=== PATIENT | male | born 1970 | race Caucasian/White ===

== ENCOUNTER 2020-04-25 01:19 | Inpatient (IN) | payer MEDICAID, OTHER ==
[~2020-04-25] VITALS: Ht 175.3 cm; Wt 88.5 kg
[~2020-04-25 01:19] MED LIST: METH10TA2 PO
[2020-04-25] MEDS ORDERED: MORPHINE SULFATE 4 MG/ML CPJ (NOT FOR IM USE) IV STA (01:55)
[2020-04-25 03:04] LABS: BASOPHILS % 0.8 % (0.0-2.0); EOSINOPHILS % 2.2 % (0.0-5.0); HEMATOCRIT. 44.1 % (42.0-52.0); HEMOGLOBIN. 15.2 g/dL (14.0-18.0); MEAN CORPUSCULAR HEMOGLOBIN 31.7 pg (28.0-32.0); MONOCYTES % 7.5 % (2.0-8.0); NEUTROPHILS % 64.5 % (40.0-76.0); PLATELET 197 x1000/uL (130-400); RED CELL DISTRIBUTION WIDTH 12.9 % (11.6-14.6)
[2020-04-25 03:12] LABS: CHLORIDE 108 mEq/L (98-107)
[2020-04-25] MEDS ORDERED: ACETAMINOPHEN 325MG TABLET PO PRN ×2 (06:00)
[2020-04-25] MEDS ORDERED: ONDANSETRON HCL 4MG/2ML INJ IV PRN (06:00)
[2020-04-25] MEDS ORDERED: IPRATROPIUM/ALBUTEROL 0.5-3(2.5)MG/3ML NEB ORI PRN (06:00)
[2020-04-25] MEDS ORDERED: NITROGLYCERIN 0.4MG TABLET SL SL PRN (06:00)
[2020-04-25] MEDS ORDERED: GUAIFENESIN 200MG/10ML SUGAR FREE UDC PO PRN (06:00)
[2020-04-25] MEDS ORDERED: MAGNESIUM/ALUMINUM HYDROXIDE/SIMETHICONE 30ML UDC PO PRN (06:00)
[2020-04-25] MEDS ORDERED: KETOROLAC 15MG/ML VIAL IV PRN (06:00)
[2020-04-25] MEDS ORDERED: DOCUSATE SODIUM 100MG CAPSULE PO PRN (06:00)
[2020-04-25] MEDS ORDERED: CLONIDINE 0.1MG TABLET PO PRN (06:00)
[2020-04-25] MEDS ORDERED: LORAZEPAM 0.5MG TABLET PO PRN (06:00)
[2020-04-25] MEDS: ASPIRIN 325MG EC TABLET PO SCH (09:08)
[2020-04-25] MEDS: ENOXAPARIN 40MG/0.4ML SYR SUBCUT SCH (09:12)
[2020-04-25] MEDS: FAMOTIDINE 20MG TABLET PO SCH ×2 (09:12→22:29)
[2020-04-25 13:06] LABS: LDL CHOLESTEROL 87 mg/dL (5-100)
[2020-04-25 13:07] LABS: HDL CHOLESTEROL 47 mg/dL (40-59)
[2020-04-25 13:08] LABS: CREATINE KINASE 66 IU/L (39-308)
[2020-04-25 13:10] LABS: CREATINE KINASE MB FRACTION 1.1 ng/mL (0.5-3.6)
[2020-04-25 13:35] VITALS: BP 111/71
[2020-04-25 14:01] VITALS: BP 111/71
[2020-04-25] MEDS ORDERED: GABA-531 PO (14:30)
[2020-04-25] MEDS ORDERED: QUET50TA PO (14:31)
[2020-04-25] MEDS ORDERED: BUPR100T13 PO (14:32)
[2020-04-25] MEDS ORDERED: BUPR200T31 PO (14:33)
[2020-04-25 16:00] VITALS: BP 119/73
[2020-04-25] MEDS ORDERED: ZOLPIDEM TARTRATE 5MG TABLET PO PRN (21:00)
[2020-04-25 21:19] LABS: CREATINE KINASE 51 IU/L (39-308); CREATINE KINASE MB FRACTION < 1.0 ng/mL (0.5-3.6)
[2020-04-26] VITALS: BP 103/60
[2020-04-26 04:00] VITALS: BP 111/66
[2020-04-26] MEDS ORDERED: ASPI-1158 MT (06:28)
[2020-04-26 08:00] VITALS: BP 115/59
[2020-04-26 08:48] LABS: *AMPHETAMINES SCREEN URINE PRESUMTIVE POSITIVE (NEGATIVE); *BARBITURATES SCREEN URINE NEGATIVE (NEGATIVE); *BENZODIAZEPINES SCREEN URINE NEGATIVE (NEGATIVE); *COCAINE SCREEN URINE NEGATIVE (NEGATIVE); METHADONE URINE SCREEN NEGATIVE (NEGATIVE); OPIATES URINE SCREEN PRESUMTIVE POSITIVE (NEGATIVE)
[2020-04-26 08:49] LABS: CANNABINOID URINE SCREEN NEGATIVE (NEGATIVE); PHENCYCLIDINE URINE SCREEN NEGATIVE (NEGATIVE)
[2020-04-26] MEDS: ASPIRIN 325MG EC TABLET PO SCH (09:10)
[2020-04-26] MEDS: FAMOTIDINE 20MG TABLET PO SCH (09:10)
[2020-04-26] MEDS: ENOXAPARIN 40MG/0.4ML SYR SUBCUT SCH (09:10)
[2020-04-26 10:21] VITALS: BP 115/59
== END 2020-04-26 11:45 | disposition home or self-care (01) | DRG 203 ==
LOC: ER 01:26 → MICUSO 04:18 → EDBEDREQ 04:27 → EDBEDREQTM 04:27 → 6WST 13:17
PROVIDERS: ADMIT Internal Medicine; ATTEND Internal Medicine
DX: R07.89 Other chest pain (principal); F11.10 Opioid abuse, uncomplicated; F17.210 Nicotine dependence, cigarettes, uncomplicated; F19.90 Other psychoactive substance use, unspecified, uncomplicated; F43.10 Post-traumatic stress disorder, unspecified; F32.9 Major depressive disorder, single episode, unspecified; F41.9 Anxiety disorder, unspecified; Z79.1 Long term (current) use of non-steroidal anti-inflammatories (NSAID); Z79.82 Long term (current) use of aspirin; Z79.899 Other long term (current) drug therapy
CPT/HCPCS: 36415; 71045; 80053; 80061; 80305; 82550; 82553; 82962; 83036; 83880; 84484; 85025; 93005; 93970; 96372; 99285; J1650; J2270

== ENCOUNTER 2020-05-05 04:45 | Emergency (ER) | payer MEDICAID ==
[~2020-05-05] VITALS: Ht 175.3 cm; Wt 88.5 kg
[~2020-05-05 04:45] MED LIST changes: +ASPI-1158 MT; +BUPR100T13 PO; +BUPR200T31 PO; +GABA-531 PO; +QUET50TA PO
[2020-05-05 06:22] LABS: BASOPHILS % 0.4 % (0.0-2.0); EOSINOPHILS % 1.2 % (0.0-5.0); HEMATOCRIT. 44.6 % (42.0-52.0); HEMOGLOBIN. 15.5 g/dL (14.0-18.0); MEAN CORPUSCULAR VOLUME 92.3 fL (80.0-94.0); MEAN PLATELET VOLUME 8.9 fl (7.4-10.4); MONOCYTES % 8.6 % (2.0-8.0); NEUTROPHILS % 75.8 % (40.0-76.0); PLATELET 196 x1000/uL (130-400); RED BLOOD CELL COUNT 4.84 mill/uL (4.7-6.1)
[2020-05-05 06:30] LABS: CHLORIDE 105 mEq/L (98-107)
[2020-05-05 06:34] LABS: ETHANOL BLOOD < 10 mg/dL
[2020-05-05 07:56] LABS: CLARITY URINE CLEAR (CLEAR); COLOR URINE YELLOW (YELLOW); KETONES URINE NEGATIVE (NEGATIVE); LEUKOCYTE ESTERASE URINE NEGATIVE (NEGATIVE); NITRITE URINE NEGATIVE (NEGATIVE); OCCULT BLOOD URINE NEGATIVE (NEGATIVE); PH URINE 5.5 (4.5-8.0); PROTEIN URINE NEGATIVE (NEGATIVE); SPECIFIC GRAVITY URINE 1.016 (1.005-1.030); UROBILINOGEN URINE 0.2 E.U./dL (0.2-1.0)
[2020-05-05 08:42] LABS: *AMPHETAMINES SCREEN URINE PRESUMTIVE POSITIVE (NEGATIVE); *BARBITURATES SCREEN URINE NEGATIVE (NEGATIVE); *COCAINE SCREEN URINE NEGATIVE (NEGATIVE)
[2020-05-05 08:43] LABS: *BENZODIAZEPINES SCREEN URINE NEGATIVE (NEGATIVE); CANNABINOID URINE SCREEN NEGATIVE (NEGATIVE); METHADONE URINE SCREEN NEGATIVE (NEGATIVE); OPIATES URINE SCREEN PRESUMTIVE POSITIVE (NEGATIVE); PHENCYCLIDINE URINE SCREEN NEGATIVE (NEGATIVE)
[2020-05-05] MEDS ORDERED: NICOTINE 14MG PATCH TD ONE (09:30)
[2020-05-06] MEDS ORDERED: LORAZEPAM 0.5MG TABLET PO ONE (09:15)
[2020-05-06 14:56] VITALS: BP 113/73
== END 2020-05-06 14:58 | disposition home or self-care (01) ==
LOC: ER 04:45
DX: R45.851 Suicidal ideations (principal); F17.200 Nicotine dependence, unspecified, uncomplicated; F12.10 Cannabis abuse, uncomplicated; F11.10 Opioid abuse, uncomplicated; Z79.82 Long term (current) use of aspirin; Z79.899 Other long term (current) drug therapy
CPT/HCPCS: 36415; 80053; 80305; 80320; 81003; 85025; 99285; G0480

== ENCOUNTER 2020-07-07 15:13 | Emergency (ER) | payer MEDICAID ==
[~2020-07-07] VITALS: Ht 172.7 cm; Wt 80.0 kg
[2020-07-07 16:08] LABS: HEMATOCRIT. 40.2 % (42.0-52.0); HEMOGLOBIN. 13.8 g/dL (14.0-18.0); MEAN CORPUSCULAR HEMOGLOBIN 30.6 pg (28.0-32.0); MEAN CORPUSCULAR VOLUME 89.5 fL (80.0-94.0); MEAN PLATELET VOLUME 8.9 fl (7.4-10.4); PLATELET 193 x1000/uL (130-400); RED CELL DISTRIBUTION WIDTH 12.9 % (11.6-14.6)
[2020-07-07 16:17] LABS: PROTHROMBIN TIME 10.9 sec (9.6-11.0)
[2020-07-07 16:25] LABS: CHLORIDE 108 mEq/L (98-107)
[2020-07-07 16:31] LABS: PLATELET ESTIMATE NORMAL
[2020-07-07] MEDS ORDERED: SODIUM CHLORIDE 0.9% 1,000 ML IV ONE (16:59)
[2020-07-07] MEDS ORDERED: ONDANSETRON HCL 4MG/2ML INJ IV STA (16:59)
[2020-07-07 20:45] VITALS: BP 121/76
== END 2020-07-07 21:00 | disposition home or self-care (01) ==
LOC: ER 15:13
DX: R11.2 Nausea with vomiting, unspecified (principal); L53.9 Erythematous condition, unspecified; F12.10 Cannabis abuse, uncomplicated; F11.10 Opioid abuse, uncomplicated; Z79.899 Other long term (current) drug therapy; Z79.82 Long term (current) use of aspirin
CPT/HCPCS: 36415; 80053; 82270; 85025; 85610; 86850; 86900; 86901; 96361; 96374; 99283; J2405; J7030

== ENCOUNTER 2024-08-08 02:34 | Emergency (ER) | payer MEDICAID ==
[~2024-08-08] VITALS: Ht 170.2 cm; Wt 75.0 kg
[~2024-08-08 02:34] MED LIST changes: -ASPI-1158 MT; +ASPI-1406 MT; -GABA-531 PO; +GABA-532 PO; +METH-818 PO; -METH10TA2 PO
[2024-08-08 02:38] VITALS: BP 134/90; PULSE 108; RESP 16; TEMP 98.5; O2SAT 99
== END 2024-08-08 03:00 ==
LOC: ER 02:34
DX: M79.606 Pain in leg, unspecified (principal); Z53.21 Procedure and treatment not carried out due to patient leaving prior to being seen by health care provider